=== PATIENT | male | born 1945 | race Hispanic/Latino ===

== ENCOUNTER 2017-08-18 15:55 | Emergency (ER) | payer OTHER ==
[2017-08-18 17:48] VITALS: BP 153/77
[2017-08-18] MEDS ORDERED: TYLENOL PO ONE (18:15)
--- NOTE | 2017-08-18 18:16 | Emergency Department Report ---
ED General Adult HPI - General Chief complaint: Back Pain/Injury Stated complaint: BACK PAIN Time Seen by Provider: 08/18/17 18:01 Source: patient, family, RN notes reviewed Mode of arrival: Stretcher Limitations: No Limitations - History of Present Illness Initial comments: This is a 72-year-old male who is unknown to this provider previously, has a past medical history of diabetes, heart disease status post CABG, who presents to the ER after mechanical fall out of bed last night at around 2:00. He reports that he landed on his mid thoracic back. He is not sure if he hit his head. He had no symptoms prior to the fall. After the fall, he describes parathoracic and paralumbar back pain, which does not radiate anywhere, which increases with palpation and decreases with rest and range of motion. He denies lower extremity weakness, numbness, bladder/bowel retention, incontinence. He reports that he was being seen at an outpatient [place] facility, and began to have a coughing spell, which in turn caused him to choke briefly. He denies DVT, pulmonary embolus risk factors. He was sent here to the ER for evaluation from [facility] for an incidentally acquired abnormal EKG, and further evaluation. -: Gradual Location: back Radiation: non-radiation Quality: aching Consistency: constant, intermittent Improves with: rest Worsens with: movement Associated Symptoms: cough. denies: confusion, chest pain, diaphoresis, fever/ chills, headaches, loss of appetite, malaise, nausea/vomiting, rash, seizure, shortness of breath, syncope, weakness - Related Data Previous Rx's Medication Instructions Recorded Last Taken Type Acetaminophen [Tylenol Arthritis] 650 mg PO Q6HR PRN #30 tablet.er 08/18/17 Unknown Rx Ibuprofen [Motrin] 600 mg PO Q8H PRN #30 tablet 08/18/17 Unknown Rx Allergies Allergy/AdvReac Type Severity Reaction Status Date / Time No Known Allergies Allergy Unverified 08/18/17 17:48 ED Review of Systems ROS: Stated complaint: BACK PAIN Other details as noted in HPI Constitutional: denies: fever Eyes: denies: vision change ENT: denies: epistaxis Respiratory: cough Cardiovascular: denies: chest pain, syncope Gastrointestinal: denies: abdominal pain Genitourinary: denies: dysuria Musculoskeletal: back pain Skin: denies: lesions Neurological: denies: weakness, numbness, paresthesias, confusion Psychiatric: denies: anxiety ED Past Medical Hx - Past Medical History Previous Medical History?: Yes Hx Hypertension: Yes Hx Heart Attack/AMI: Yes Hx Diabetes: Yes - Surgical History Hx Pacemaker: Yes Additional Surgical History: CABG - Social History Smoking Status: Former Smoker Substance Use Type: None - Medications Home Medications: Home Medications Medication Instructions Recorded Confirmed Last Taken Type Acetaminophen [Tylenol Arthritis] 650 mg PO Q6HR PRN #30 tablet.er 08/18/17 Unknown Rx Ibuprofen [Motrin] 600 mg PO Q8H PRN #30 tablet 08/18/17 Unknown Rx ED Physical Exam - General Limitations: No Limitations General appearance: alert, in no apparent distress - Head Head exam: Present: atraumatic, normocephalic - Eye Eye exam: Present: normal appearance, EOMI. Absent: nystagmus - ENT ENT exam: Present: normal exam, normal orophraynx, mucous membranes moist, normal external ear exam - Neck Neck exam: Present: normal inspection, full ROM. Absent: tenderness, meningismus - Respiratory Respiratory exam: Present: normal lung sounds bilaterally. Absent: respiratory distress - Cardiovascular Cardiovascular Exam: Present: regular rate, normal rhythm, normal heart sounds. Absent: bradycardia, tachycardia, irregular rhythm, systolic murmur, diastolic murmur, rubs, gallop - GI/Abdominal GI/Abdominal exam: Present: soft, normal bowel sounds. Absent: distended, tenderness, guarding, rebound, rigid - Rectal Rectal exam: Present: deferred - Extremities Exam Extremities exam: Present: normal inspection, full ROM, normal capillary refill , other (the compartments are soft. 2+ pulses noted in the upper, lower extremities, pelvis is stable, no long bony tenderness.). Absent: pedal edema, calf tenderness - Back Exam Back exam: Present: normal inspection, full ROM, tenderness, paraspinal tenderness - Neurological Exam Neurological exam: Present: alert, oriented X3, CN II-XII intact, other ( Extraocular movements intact. Tongue midline. No facial droop. Facial sensation intact to light touch in the V1, V2, V3 distribution bilaterally. 5 and 5 strength in 4 extremities.. Sensation is intact to light touch in 4 extremities.). Absent: motor sensory deficit - Psychiatric Psychiatric exam: Present: normal affect, normal mood - Skin Skin exam: Present: warm, dry, intact, normal color. Absent: rash ED Course Vital Signs 08/18/17 08/18/17 08/18/17 17:31 17:37 17:45 Temperature 98.1 F Pulse Rate 95 H 84 Respiratory 21 16 21 Rate Blood Pressure 153/77 153/77 O2 Sat by Pulse 99 99 98 Oximetry - Reevaluation(s) Reevaluation #1: 08/18/17 19:11 differential diagnosis, including but not limited to: Intracranial injury, muscular spine injury, bony spine injury, choking episode, now resolved, aspiration pneumonia Assessment and plan: 72-year-old male whose primary complaint is back pain after fall.Patient is clinically sober at this time. The cervical spine is cleared through nexus and [place] spine rule He is afebrile, with reassuring vital signs, clinically sober, and has no physical exam findings or neurologic deficits to suggest epidural compression syndrome, or AAA. He has downgoing plantar reflexes in the bilateral lower extremities, and sensation is intact to light touch and pinch in the bilateral upper, lower extremities. His pain will be treated, he can follow-up with his private rn lvn for his incidental and asymptomatic abnormal EKG. He has no pulmonary embolus or DVT risk factors and he is low risk by well's criteria. A noncontrast CT scan of the brain was negative, and CT scan of the spine is pending at this time. X-ray of the chest is unremarkable. Reevaluation #2: 08/18/17 19:[address] t/ l spine negative for fracture/ dislocation repeat neuro exam wnl and unchanged. feels improved. no cardiac complaints. will discharge. return precautions reviewed ED Medical Decision Making - Lab Data Vital Signs 08/18/17 08/18/17 08/18/17 17:31 17:37 17:45 Temperature 98.1 F Pulse Rate 95 H 84 Respiratory 21 16 21 Rate Blood Pressure 153/77 153/77 O2 Sat by Pulse 99 99 98 Oximetry - EKG Data -: EKG Interpreted by Id - EKG Data When compared to previous EKG there are: previous EKG unavailable 08/18/17 19:13 Normal sinus, 91 bpm, normal axis, QTC prolonged, right bundle branch block, abnormal EKG, not a STEMI - Radiology Data Radiology results: report reviewed, image reviewed ct head, t /l spine negative for acute disease Critical care attestation.: If time is entered above; I have spent that time in minutes in the direct care of this critically ill patient, excluding procedure time. ED Disposition Clinical Impression: Fall, Back pain, Abnormal EKG Disposition: TO HOME OR SELFCARE Is pt being admited?: No Does the pt Need Aspirin: No Condition: Stable Instructions: Acute Low Back Pain (ED), Fall Prevention (ED) Additional Instructions: Take pain medications as needed/directed. Pain typically gets worse before it gets better after mechanical fall. Rest, and avoid heavy lifting, and avoid strenuous physical activity. Follow-up with your primary care doctor or with your primary rn lvn for your abnormal EKG, which is most likely incidental , within the next week. Return to the ER right away with pain, worsened pain, migration of pain, fevers, chills, lethargy, irritability, projectile vomiting, change in mental status, confusion, inability to tolerate liquid feeds. Prescriptions: Acetaminophen [Tylenol Arthritis] 650 mg PO Q6HR PRN #30 tablet.er PRN Reason: Pain Ibuprofen [Motrin] 600 mg PO Q8H PRN #30 tablet PRN Reason: Pain Referrals: PRIMARY CARE, [Primary Care Provider] - 3-5 Days
--- NOTE | 2017-08-18 19:08 | Cat Scan Report ---
FINAL REPORT EXAM: CT HEAD/BRAIN WO CON HISTORY: fall TECHNIQUE: Noncontrast CT axial images of the brain. PRIORS: None. FINDINGS: No parenchymal mass, mass effect, hemorrhage, midline shift or hydrocephalus. No evidence of acute cortical infarct. No abnormal, extra-axial fluid or air collection. Very mild, patchy low density in the periventricular and subcortical white matter is nonspecific, but may relate to chronic small vessel ischemic change. Age-related volume loss. Osseous calvarium grossly intact. IMPRESSION: 1. No acute intracranial findings.
[2017-08-18] MEDS ORDERED: TORADOL IM ONE (19:10)
--- NOTE | 2017-08-18 19:16 | Cat Scan Report ---
FINAL REPORT EXAM: CT LUMBAR SPINE WO CON HISTORY: fall back pain TECHNIQUE: Spiral CT scanning of the lumbar spine, with axial and multiplanar reformations. PRIORS: None. FINDINGS: Diffuse osteopenia. Diffuse, multilevel degenerative disc disease and spondylosis. Sclerotic and chronic-appearing loss of the anteroinferior L3 vertebral body, with bony ankylosis or assimilation of remnant with overlying L2 vertebral body may be congenital or acquired, including postsurgical or postinflammatory. Moderate central spinal canal narrowing at this level, also probably chronic. Chronic pars defects or spondylolysis and mild spondylolisthesis in the L5-S1 level. Variable neural foraminal narrowing or encroachment in the bilateral L3-S1 levels, most pronounced in the L5-S1 level. No acute compression deformity or gross malalignment of lumbar vertebral bodies. No acute fracture identified. No acute, osseous central spinal canal encroachment. Paraspinal soft tissues grossly unremarkable. IMPRESSION: 1. No acute compression deformity or apparent fracture in the lumbar spine. 2. Diffuse degenerative spondylosis. Please see above for further details.
--- NOTE | 2017-08-18 19:20 | Cat Scan Report ---
FINAL REPORT EXAM: CT THORACIC SPINE WO CON HISTORY: fall back pain TECHNIQUE: Spiral CT scanning of the thoracic spine with multiplanar reformations. PRIORS: None. FINDINGS: Diffuse osteopenia. Multilevel degenerative disc disease and spondylosis. No acute compression deformity or gross malalignment of thoracic vertebral bodies. No acute fracture identified. No acute, osseous central spinal canal encroachment. Paraspinal soft tissues grossly unremarkable. IMPRESSION: 1. No acute compression deformity or apparent fracture in the thoracic spine. 2. Degenerative spondylosis.
--- NOTE | 2017-08-18 19:30 | XRay Report ---
FINAL REPORT EXAM: XR CHEST ROUTINE 2V HISTORY: choking episode TECHNIQUE: Frontal and lateral chest x-ray. PRIORS: None. FINDINGS: Postsurgical changes project over the heart. Cardiac and mediastinal silhouette within normal limits. Lungs are normally expanded, with mild elevation or eventration of right hemidiaphragm and probable mild atelectasis or scarring projected in left lower lung. No significant vascular congestion. No focal consolidation, pleural effusion or apparent pneumothorax. Bony thorax grossly unremarkable. IMPRESSION: 1. No acute consolidation.
[2017-08-18] MEDS ORDERED: TORADOL IV ONE (19:37)
== END 2017-08-18 19:10 | disposition home or self-care (01) ==
LOC: ED 15:55
DX: R94.31 Abnormal electrocardiogram [ECG] [EKG] (principal); M54.5 Low back pain; I10 Essential (primary) hypertension; I25.2 Old myocardial infarction; E11.9 Type 2 diabetes mellitus without complications; R51 Headache; Z95.0 Presence of cardiac pacemaker; Z87.891 Personal history of nicotine dependence; Z95.1 Presence of aortocoronary bypass graft; W19.XXXA Unspecified fall, initial encounter; Y93.89 Activity, other specified; Y99.8 Other external cause status; Y92.89 Other specified places as the place of occurrence of the external cause
CPT/HCPCS: 70450; 71046; 72128; 72131; 93005; 93010; 96374; 99284; J1885